=== PATIENT | female | born 1960 | race Caucasian/White ===

== ENCOUNTER 2018-06-16 23:58 | Emergency (ER) | payer MEDICARE, OTHER ==
[~2018-06-16] VITALS: Ht 162.6 cm; Wt 67.6 kg
[2018-06-17 00:33] VITALS: BP_SYST 143
[2018-06-17 00:57] VITALS: BP_SYST 143
== END 2018-06-17 00:57 | disposition home or self-care (01) ==
LOC: SED 23:58
DX: R05 Cough (principal); J45.909 Unspecified asthma, uncomplicated
CPT/HCPCS: 99283